=== PATIENT | female | born 1995 | race Caucasian/White ===

== ENCOUNTER 2017-02-05 07:36 | Inpatient (IN) | payer BC ==
[2017-02-05] MEDS ORDERED: BRETHINE 1 MG/ML SQ PRN (17:00)
[2017-02-05] MEDS ORDERED: Cervidil 10 MG VAG SCH (17:30)
[2017-02-05] MEDS ORDERED: Nubain 10 MG/ML IV PRN (18:16)
[2017-02-05] MEDS ORDERED: STADOL 2 MG IV PRN (18:16)
[2017-02-05] MEDS ORDERED: Phenergan 25 MG INJ IV PRN (18:16)
[2017-02-05] MEDS ORDERED: TYLENOL EXTRA STRENGTH 500 MG PO PRN (18:16)
[2017-02-05] MEDS ORDERED: Zofran 4 MG/2 ML VIAL IV PRN (18:16)
[2017-02-05] MEDS ORDERED: XYLOCAINE 1% HCL 20 ML MDV IJ PRN (18:16)
[2017-02-05 18:25] LABS: BASOPHIL % 0.2 % (0.0-0.4); Eosinophil % 1.6 % (0.00-5.0); Granulocytes % 74.6 % (36.0-66.0); Lymphocytes % 17.7 % (24.0-44.0); Mean Cell Volume 89.3 fl (78-100); Mean Corpuscular Hemoglobin 28.8 pg (26-32); Mean Platelet Volume 10.9 fl (6-9.5); Monocytes % 5.9 % (0.0-12.0); Platelet Count 262 K/mm3 (150-450); Red Blood Count 4.02 M/mm3 (4.1-5.4); Red Cell Distribution Width 14.7 % (11.5-14.0); White Blood Count 13.5 K/mm3 (4.0-10.5)
[2017-02-05 20:49] LABS: Bacteria MANY /HPF (NEGATIVE); CALCIUM OXALATE CRYSTALS 0-2 /HPF (NEGATIVE); COMPLETE URINE MICROSCOPIC? YES; Collection Type CLEAN CATCH; Epithelial Cells MANY /HPF (FEW); Mucus MODERATE /HPF (NEGATIVE); WBC 25-50 /HPF (0-5)
[2017-02-06] MEDS: OMNIPEN 2 GM / NACL 100ML 100 ML IV ONE ×2 (04:35→06:15)
[2017-02-06] MEDS: OMNIPEN 1GM / NaCl 100ML 100 ML IV SCH ×5 (04:35→19:27)
[2017-02-06] MEDS ORDERED: PITOCIN 30 UNITS/ LR 500 ML 500 ML IV SCH ×2 (05:00)
[2017-02-06] MEDS ORDERED: OMNIPEN 2 GM / NACL 100ML 100 ML IV ONE (05:00)
[2017-02-06] MEDS ORDERED: Lactated Ringers 1,000 ML IV SCH (05:00)
[2017-02-06] MEDS ORDERED: STADOL 2 MG IV PRN (08:04)
[2017-02-06] MEDS ORDERED: Lactated Ringers 1,000 ML IV ONE (09:00)
[2017-02-06] MEDS ORDERED: OMNIPEN 1GM / NaCl 100ML 100 ML IV SCH (09:00)
[2017-02-06] MEDS ORDERED: OB EPIDURAL NAROPIN/SUFENTANIL IN NACL EPIDURAL PRN (09:00)
[2017-02-06] MEDS ORDERED: Ephedrine Sulfate 50 MG/ML IV PRN (09:00)
[2017-02-06 12:15] VITALS: O2SAT 95
[2017-02-06] MEDS ORDERED: TUCKS TP PRN (13:15)
[2017-02-06] MEDS ORDERED: MOTRIN 400 MG PO PRN (13:15)
[2017-02-06] MEDS ORDERED: Dermoplast Spray TP PRN (13:15)
[2017-02-06] MEDS ORDERED: TYLENOL EXTRA STRENGTH 500 MG PO PRN (13:15)
[2017-02-06] MEDS ORDERED: LANSINOH 40 GM TOP PRN (13:15)
[2017-02-06] MEDS ORDERED: Ambien 10 MG PO PRN (13:15)
[2017-02-06] MEDS ORDERED: Mylicon 80MG PO PRN (13:15)
[2017-02-06] MEDS ORDERED: Adacel Vial IM ONE (13:15)
[2017-02-06] MEDS ORDERED: Anucort-HC SUPPOSITORY PR PRN (13:15)
[2017-02-06] MEDS ORDERED: CORTISONE 1% CREAM TP PRN (13:15)
[2017-02-06] MEDS ORDERED: Tylenol #3 Tablet PO PRN (13:15)
[2017-02-06] MEDS ORDERED: Dulcolax 10 MG SUPP PR PRN (13:15)
[2017-02-06] MEDS: Colace 100 MG PO SCH (21:35)
[2017-02-07 05:23] LABS: BASOPHIL % 0.3 % (0.0-0.4); Eosinophil % 1.7 % (0.00-5.0); Granulocytes % 71.2 % (36.0-66.0); Lymphocytes % 20.8 % (24.0-44.0); Mean Cell Volume 90.4 fl (78-100); Mean Platelet Volume 10.2 fl (6-9.5); Platelet Count 218 K/mm3 (150-450); Red Blood Count 3.65 M/mm3 (4.1-5.4); Red Cell Distribution Width 14.7 % (11.5-14.0); White Blood Count 15.3 K/mm3 (4.0-10.5)
--- NOTE | 2017-02-07 08:10 | PCM.NOTE ---
Date and Time: 02/07/17808 Subjective Assessment: ppd #1 hgb 10.6, mild lochia. minimal pain, tolerating po. no problems or concerns. Objective Exam General Appearance: no apparent distress, alert Respiratory Exam: normal breath sounds, lungs clear, No respiratory distress Cardiovascular Exam: regular rate/rhythm, normal heart sounds Gastrointestinal/Abdomen Exam: soft, No tenderness, No mass Extremity Exam: normal inspection, normal range of motion OBJECTIVE DATA Vital Signs: Vital Signs - 24 hr Temp Pulse Resp BP BP Pulse Ox 02/07/17 02:00 97.7 F 94 H 18 133/79 02/06/17 20:00 98.7 F 99 H 18 127/72 02/06/17 16:00 112 H 18 128/64 02/06/17 15:00 109 H 18 125/57 02/06/17 14:00 103 H 18 125/59 02/06/17 13:45 102 H 18 128/62 02/06/17 13:30 102 H 18 128/62 02/06/17 13:15 100 H 18 128/71 02/06/17 13:00 116 H 18 189/105 02/06/17 12:45 113 H 18 157/96 02/06/17 12:30 90 18 133/73 95 02/06/17 12:15 93 H 18 133/73 95 02/06/17 12:00 99 H 18 129/85 95 02/06/17 11:30 93 H 18 127/67 95 02/06/17 11:15 92 H 18 129/73 95 02/06/17 11:00 67 18 129/67 94 L 02/06/17 10:45 108 H 18 148/69 94 L 02/06/17 10:30 99 H 18 125/68 94 L 02/06/17 10:15 96 H 18 126/58 94 L 02/06/17 10:00 99 H 18 123/65 97 02/06/17 09:45 102 H 18 124/58 02/06/17 09:30 128 H 18 132/81 02/06/17 09:15 100 H 18 139/85 02/06/17 09:00 107 H 18 160/103 02/06/17 08:45 99 H 18 137/85 02/06/17 08:30 98 H 18 134/80 02/06/17 08:15 101 H 18 137/93 Pain Assessment - Last Documented Pain Intensity [Lower] 7 Pain Intensity 8 Pain Scale Used 0-10 Pain Scale Intake and Output: Intake & Output 02/04/17 02/05/17 02/06/17 02/07/17 11:59 11:59 11:59 11:59 Intake Total 400 Output Total 200 Balance 200 Weight 108.862 kg Lab Results: Lab Results-Last 24 Hours 02/07/17 Range/Units 05:17 WBC 15.3 H (4.0-10.5) K/mm3 RBC 3.65 L (4.1-5.4) M/mm3 Hgb 10.6 L (12.0-16.0) gm/dl Hct 33.0 L (35-47) % MCV 90.4 (78-100) fl MCH 29.0 (26-32) pg MCHC 32.1 (32-36) g/dl RDW 14.7 H (11.5-14.0) % Plt Count 218 (150-450) K/mm3 MPV 10.2 H (6-9.5) fl Gran % 71.2 H (36.0-66.0) % Lymphocytes % 20.8 L (24.0-44.0) % Monocytes % 6.0 (0.0-12.0) % Eosinophils % 1.7 (0.00-5.0) % Basophils % 0.3 (0.0-0.4) % Basophils # 0.04 (0-0.4) Assessment/Plan (1) Vaginal delivery Current Visit: No Status: Acute Assessment & Plan: routine pp care Code(s): O80 - ENCOUNTER FOR FULL-TERM UNCOMPLICATED DELIVERY
[2017-02-07] MEDS: FERREX 150 PO SCH (10:51)
[2017-02-07] MEDS: Colace 100 MG PO SCH ×2 (10:51→22:00)
[2017-02-08 09:28] VITALS: BP 105/64; PULSE 75
--- NOTE | 2017-02-08 09:53 | PCM.DS ---
Discharge Summary Date of Admission: 02/06/17 07:55 Admitting Physician: LEONIDES GRANADOS Consults: Consults on Case 02/06/17 09:01 Notify Anesthesia Provider PRN 02/06/17 13:15 Notify Physician ROUTINE Primary Care Provider: LEONIDES GRANADOS Allergies Allergies latex Allergy (Severe, Verified 07/07/16 21:52) causes swelling and rash hydrogen peroxide Allergy (Verified 07/07/16 21:52) patient states it made "white bumps" on her skin Hospital Summary - Hospital Course Hospital Course: doing well s/p at term. mild to mod lochia, tolerating po. denies pain - Vitals & Intake/Output Vital Signs: Vital Signs Temperature 98.7 F 02/08/17 08:00 Pulse Rate 75 02/08/17 08:00 Respiratory Rate 18 02/08/17 08:00 Blood Pressure 105/64 02/08/17 08:00 O2 Sat by Pulse Oximetry 95 02/06/17 12:30 Intake & Output: Intake & Output 02/05/17 02/06/17 02/07/17 02/08/17 11:59 11:59 11:59 11:59 Intake Total 400 650 Output Total 200 Balance 200 650 Weight 108.862 kg - Lab Result Diagrams: 02/07/17 05:17 Micro Results-Entire Visit: Microbiology 02/06/17 10:59 - Final Catherized NO GROWTH Discharge Exam General Appearance: no apparent distress, alert Respiratory Exam: normal breath sounds, lungs clear, No respiratory distress Cardiovascular Exam: regular rate/rhythm, normal heart sounds Gastrointestinal/Abdomen Exam: soft, No tenderness, No mass Extremity Exam: normal inspection, normal range of motion Final Diagnosis/Problem List - Final Discharge Diagnosis/Problem (1) Vaginal delivery Current Visit: No Status: Acute - Discharge Disposition: Home, Self-Care Condition: Stable Prescriptions: Continue Vits W-Ca,Fe,FA(<1Mg) [] 1 tab PO DAILY
[2017-02-08] MEDS: FERREX 150 PO SCH (09:55)
[2017-02-08] MEDS: Colace 100 MG PO SCH (10:04)
== END 2017-02-08 14:20 | disposition home or self-care (01) | DRG 775 ==
LOC: OB 16:51 → OBSVTOIN 02-06 07:55 → MED SURG 02-06 21:37
PROVIDERS: ADMIT Family Medicine; ATTEND Family Medicine
PROC: 10E0XZZ Delivery of Products of Conception, External Approach (ICD-10-PCS; principal; 2017-02-06)
DX: O80 Encounter for full-term uncomplicated delivery (principal); Z3A.40 40 weeks gestation of pregnancy; Z37.0 Single live birth
CPT/HCPCS: 01967; 36415; 80307; 81000; 85025; 87086; 90715; G0378; J0290; J0595; J2590; J2795; A9270-GY

== ENCOUNTER 2022-07-02 10:02 | Emergency (ER) | payer SELFPAY ==
--- NOTE | 2022-07-02 10:06 | ERPHSYRPT ---
- History of Present Illness Time Seen by Provider: 07/02/22 10:05 Source: patient, family Exam Limitations: no limitations Physician History: This is an overweight 26-year-old white female who was at a concert last night and twisted her left ankle at approximately 11 PM. There is persistent pain and increased swelling present and therefore she came in for evaluation. Patient did have some tendon and ligament injury in the distant past on this left ankle. Occurred: yesterday Quality: constant, aching Severity of Pain-Max: mild (To moderate) Severity of Pain-Current: mild (To moderate) Lower Extremities Pain: ankle: left (Lateral aspect) Modifying Factors: Improves With: movement Associated Symptoms: other (Hurts to bear weight but can do so) Allergies/Adverse Reactions: latex Allergy (Severe, Verified 07/02/22 10:18) causes swelling and rash Beef Containing Products Allergy (Verified 07/02/22 10:19) hydrogen peroxide Allergy (Verified 07/02/22 10:18) patient states it made "white bumps" on her skin Hx Tetanus, Diphtheria Vaccination/Date Given: Yes Hx Influenza Vaccination/Date Given: No Hx Pneumococcal Vaccination/Date Given: No Travel Risk - International Travel Have you traveled outside of the country in past 3 weeks: No - Coronavirus Screening Are you exhibiting any of the following symptoms?: No Close contact with a COVID-19 positive Pt in past 14-21 Days: No - Review of Systems Constitutional: No Symptoms Eyes: No Symptoms Ears, Nose, & Throat: No Symptoms Respiratory: No Symptoms Cardiac: No Symptoms Abdominal/Gastrointestinal: No Symptoms Genitourinary Symptoms: No Symptoms Musculoskeletal: Injury Skin: No Symptoms Neurological: No Symptoms Psychological: No Symptoms Endocrine: No Symptoms Hematologic/Lymphatic: No Symptoms Immunological/Allergic: No Symptoms All Other Systems: Reviewed and Negative - Past Medical History Neurological History: No Pertinent History ENT History: No Pertinent History Cardiac History: No Pertinent History Respiratory History: Asthma Endocrine Medical History: No Pertinent History Musculoskeletal History: No Pertinent History GI Medical History: No Pertinent History History: No Pertinent History Psycho-Social History: No Pertinent History Female Reproductive Disorders: No Pertinent History - Past Surgical History Past Surgical History: No - Social History Smoking Status: Never smoker Exposure to second hand smoke: Yes Drug Use: none Patient Lives Alone: No - Nursing Vital Signs Nursing Vital Signs: Initial Vital Signs Temperature 98.2 F 07/02/22 10:11 Pulse Rate 115 H 07/02/22 10:11 Blood Pressure 133/98 07/02/22 10:11 O2 Sat by Pulse Oximetry 97 07/02/22 10:11 Pain Scale Pain Intensity 6 - Physical Exam General Appearance: no apparent distress, alert, anxiety, obese Eyes, Ears, Nose, Throat Exam: normal ENT inspection, moist mucous membranes Neck Exam: normal inspection, non-tender, supple, full range of motion Cardiovascular/Respiratory Exam: chest non-tender, no respiratory distress Gastrointestinal/Abdominal Exam: non-tender Back Exam: normal inspection, normal range of motion, No CVA tenderness, No vertebral tenderness Hips Exam: bilateral: non-tender, normal inspection, normal range of motion, no evidence of injury Legs Exam: bilateral leg: non-tender, normal inspection, normal range of motion, no evidence of injury Knees Exam: bilateral knee: non-tender, normal inspection, normal range of motion, no evidence of injury Ankle Exam: right ankle: non-tender, normal inspection, normal range of motion, no evidence of injury, left ankle: limited range of motion, soft tissue tenderness, swelling Foot Exam: bilateral foot: non-tender, normal inspection, normal range of motion, no evidence of injury Neuro/Tendon Exam: normal sensation, normal motor functions, normal tendon functions, responds to pain, no evidence tendon injury Mental Status Exam: alert, oriented x 3, cooperative Skin Exam: normal color, warm, dry SpO2 Interpretation: normal O2 Delivery: Room Air - Course Nursing assessment & vital signs reviewed: Yes Ordered Tests: Active Orders 24 hr Category Date Time Status Kostas Bandage Application -[facility] STAT Care 07/02/22 11:13 Ordered ANKLE (3 VIEWS) Stat Exams 07/02/22 10:20 Ordered Medication Summary Discontinued Medications Generic Name Dose Route Start Last Admin Trade Name Cornelio PRN Reason Stop Dose Admin Oxycodone/Acetaminophen 1 tab 07/02/22 10:39 07/02/22 10:48 Oxycodone Hcl/Apap 5 Mg/325 Mg Tablet PO 07/02/22 10:40 1 tab STAT STA Administration Oxycodone/Acetaminophen Confirm 07/02/22 10:47 Oxycodone Hcl/Apap 5 Mg/325 Mg Tablet Administered 07/02/22 10:48 Dose 1 tab .ROUTE .STK-MED ONE - Progress Progress: unchanged Progress Note: 07/02/22 11:16 X-ray of left ankle shows no acute fracture or dislocation. There is soft tissue swelling in the area of the lateral malleolus. Patient was offered crutches but declines. - Departure Departure Disposition: Home Clinical Impression: Left ankle sprain Condition: Stable Critical Care Time: No Referrals: LEONIDES GRANADOS MD [Primary Care Provider] - Follow up/PCP as directed Additional Instructions: Elevate the left foot and ankle above the level of your heart when not ambulating. Ambulation as tolerated. Ice pack to area 2-3 times a day for the next 48 hours. Add Aleve or ibuprofen for pain control. Use the Kostas wrap to millwright helper in controlling swelling. Follow-up with your own orthopedic surgeon, Dr. Harrison (podiatry) or [facility] orthopedic clinic as discussed for persistent symptoms. Prescriptions: Oxycodone HCl/Acetaminophen [Percocet 5-325 mg Tablet] 1 each PO Q8H PRN PRN #6 tablet MDD 3 PRN Reason: Moderate To Severe Pain
[2022-07-02 10:18] VITALS: O2SAT 97
[2022-07-02] MEDS ORDERED: PERCOCET TABLET 5/325MG PO STA (10:39)
[2022-07-02] MEDS ORDERED: PERCOCET TABLET 5/325MG ONE (10:47)
[2022-07-02 11:19] VITALS: BP 132/73; PULSE 111
--- NOTE | 2022-07-02 21:33 | XRAY ---
Indication: Pain following fall. Comparison: August 05, 2012 3 view left ankle demonstrates new lateral soft tissue swelling and widened lateral talotibial articulation. Stable small posterior calcaneal bone island. Remaining ankle unremarkable.
== END 2022-07-02 11:30 | disposition home or self-care (01) ==
LOC: ED 10:02
DX: S93.402A Sprain of unspecified ligament of left ankle, initial encounter (principal); X50.0XXA Overexertion from strenuous movement or load, initial encounter; Z79.891 Long term (current) use of opiate analgesic
CPT/HCPCS: 73610; 99283; A9270-GY

== ENCOUNTER 2023-02-20 15:51 | Emergency (ER) | payer OTHER ==
--- NOTE | 2023-02-20 16:00 | ERPHSYRPT ---
- History of Present Illness Time Seen by Provider: 02/20/23 15:59 Historian: patient Exam Limitations: no limitations Physician History: This is a 27-year-old white female patient of Dr. Granados who has a history of asthma and has not had any abdominal surgeries in the past and presents to the emergency department with an achiness in the left upper quadrant that began y esterday. She woke up this morning the pain was more intense and sharp. She has never had anything like this before. She denies chest pain. She denies shortness of breath. She has not had any trauma to this area. Patient drove herself to the emergency department. She states she cannot get a ride home. She has had no nausea vomiting or diarrhea. Timing/Duration: yesterday, worse Quality: aching, sharpness Abdominal Pain Onset Location: [facility] Pain Radiation: no radiation Severity of Pain-Max: moderate Severity of Pain-Current: moderate Modifying Factors: Improves With: other (Her holding pressure to the area lesse ns the pain) Associated Symptoms: denies symptoms Previous symptoms: no prior history Allergies/Adverse Reactions: latex Allergy (Severe, Verified 02/20/23 16:04) causes swelling and rash Beef Containing Products Allergy (Verified 02/20/23 16:04) hydrogen peroxide Allergy (Verified 02/20/23 16:04) patient states it made "white bumps" on her skin melatonin Allergy (Verified 02/20/23 16:04) Swelling of Eyelids Home Medications: Phentermine HCl 1 tab PO DAILY 02/20/23 [History] Hx Tetanus, Diphtheria Vaccination/Date Given: Yes Hx Influenza Vaccination/Date Given: No Hx Pneumococcal Vaccination/Date Given: No Travel Risk - International Travel Have you traveled outside of the country in past 3 weeks: No - Coronavirus Screening Are you exhibiting any of the following symptoms?: No Close contact with a COVID-19 positive Pt in past 14-21 Days: No - Vaccine Status Have you recieved a Covid-19 vaccination: No - Review of Systems Constitutional: No Symptoms Eyes: No Symptoms Ears, Nose, & Throat: No Symptoms Respiratory: No Symptoms Cardiac: No Symptoms Abdominal/Gastrointestinal: Abdominal Pain (Left upper quadrant) Genitourinary Symptoms: No Symptoms Musculoskeletal: No Symptoms Skin: No Symptoms Neurological: No Symptoms Psychological: No Symptoms Endocrine: No Symptoms Hematologic/Lymphatic: No Symptoms Immunological/Allergic: No Symptoms All Other Systems: Reviewed and Negative - Past Medical History Pertinent Past Medical History: No Neurological History: No Pertinent History ENT History: No Pertinent History Cardiac History: No Pertinent History Respiratory History: Asthma Endocrine Medical History: No Pertinent History Musculoskeletal History: No Pertinent History GI Medical History: No Pertinent History History: No Pertinent History Psycho-Social History: No Pertinent History Female Reproductive Disorders: No Pertinent History - Past Surgical History Past Surgical History: No - Social History Smoking Status: Never smoker Exposure to second hand smoke: Yes Drug Use: none Patient Lives Alone: No - Nursing Vital Signs Nursing Vital Signs: Initial Vital Signs Temperature 98.2 F 02/20/23 15:51 Pulse Rate 106 H 02/20/23 15:51 Respiratory Rate 18 02/20/23 15:51 Blood Pressure 151/88 02/20/23 15:51 O2 Sat by Pulse Oximetry 98 02/20/23 15:51 Pain Scale Pain Intensity 2 - Physical Exam General Appearance: no apparent distress, alert, anxiety Eye Exam: PERRL/EOMI, eyes nml inspection Ears, Nose, Throat Exam: normal ENT inspection, moist mucous membranes Neck Exam: normal inspection, non-tender, supple, full range of motion Respiratory Exam: normal breath sounds, lungs clear, airway intact, No chest tenderness, No respiratory distress Cardiovascular Exam: tachycardia Gastrointestinal/Abdomen Exam: soft, normal bowel sounds, tenderness (Upper quadrant), guarding (Left upper quadrant to palpation) Pelvic Exam: not done Rectal Exam: not done Back Exam: normal inspection, normal range of motion, No CVA tenderness, No vertebral tenderness Extremity Exam: normal inspection, normal range of motion, pelvis stable Neurologic Exam: alert, oriented x 3, cooperative, wine and spirits clerk II-XII nml as tested, normal mood/affect, nml cerebellar function, nml station & gait, sensation nml Skin Exam: normal color, warm, dry Lymphatic Exam: No adenopathy SpO2 Interpretation: normal O2 Delivery: Room Air - Course Nursing assessment & vital signs reviewed: Yes Ordered Tests: Active Orders 24 hr Category Date Time Status IV Insertion STAT Care 02/20/23 16:17 Active ABDOMEN AND PELVIS W/0 CONTRAS [CT] Stat Exams 02/20/23 16:18 Taken AMYLASE Stat Lab 02/20/23 16:38 Results CBC W DIFF Stat Lab 02/20/23 16:38 Completed HCG QUALITATIVE, URINE Stat Lab 02/20/23 16:17 Completed LIPASE Stat Lab 02/20/23 16:38 Results Manual Differential NC Stat Lab 02/20/23 16:38 Completed UA W/RFX UR CULTURE Stat Lab 02/20/23 16:17 Completed Medication Summary Discontinued Medications Generic Name Dose Route Start Last Admin Trade Name Cornelio PRN Reason Stop Dose Admin Ketorolac Tromethamine 30 mg 02/20/23 16:41 02/20/23 16:42 Ketorolac Tromethamine 30 Mg/Ml Inj IV 02/20/23 16:42 30 mg STAT ONE Administration Ketorolac Tromethamine Confirm 02/20/23 16:42 Ketorolac Tromethamine 30 Mg/Ml Inj Administered 02/20/23 16:43 Dose 30 mg .ROUTE .Holganix-MED ONE Lab/Rad Data: Laboratory Result Diagrams 02/20/23 16:38 02/20/23 16:38 Laboratory Results 02/20/23 02/20/23 02/20/23 Range/Units 16:38 16:38 16:17 WBC 8.0 (4.0-10.5) x10^3/uL RBC 4.23 (4.1-5.4) x10^6/uL Hgb 12.4 (12.0-16.0) g/dL Hct 38.7 (35-47) % MCV 91.5 (78-100) fL MCH 29.3 (26-32) pg MCHC 32.0 (32-36) g/dL RDW 12.9 (11.5-14.0) % Plt Count 174 (150-450) x10^3/uL MPV 8.6 (7.5-11.0) fL Sodium Direct 138 (138-146) mmol/L Potassium 4.1 (3.5-4.9) mmol/L Chloride 100 (98-109) mmol/L Carbon Dioxide 26 (24-29) mmol/L Venous BUN 12 (8-26) mg/dL Creatinine 0.8 (0.6-1.3) mg/dL Glucose 102 (70-105) mg/dL Ionized Calcium 1.26 (1.12-1.32) mmol/L Amylase Pending Lipase Pending Urine Color (Yellow) Urine Appearance (Clear) Urine pH (4.6-8.0) Ur Specific Pride (1.005-1.030) Urine Protein (Negative) Urine Glucose (UA) (Negative) mg/dL Urine Ketones (Negative) Urine Blood (Negative) Urine Nitrite (Negative) Urine Bilirubin (Negative) Urine Urobilinogen (0.2) mg/dL Ur Leukocyte Esterase (Negative) U Hyaline Cast (Auto) (0-2) /LPF Urine Microscopic RBC (0-5) /HPF Urine Microscopic WBC (0-5) /HPF Ur Epithelial Cells (None Seen) /HPF Urine Bacteria (None Seen) /HPF Urine Culture Reflexed (NO) Urine HCG, Qual NEGATIVE (NEGATIVE) 02/20/23 Range/Units 16:17 WBC (4.0-10.5) x10^3/uL RBC (4.1-5.4) x10^6/uL Hgb (12.0-16.0) g/dL Hct (35-47) % MCV (78-100) fL MCH (26-32) pg MCHC (32-36) g/dL RDW (11.5-14.0) % Plt Count (150-450) x10^3/uL MPV (7.5-11.0) fL Sodium Direct (138-146) mmol/L Potassium (3.5-4.9) mmol/L Chloride (98-109) mmol/L Carbon Dioxide (24-29) mmol/L Venous BUN (8-26) mg/dL Creatinine (0.6-1.3) mg/dL Glucose (70-105) mg/dL Ionized Calcium (1.12-1.32) mmol/L Amylase Lipase Urine Color Yellow (Yellow) Urine Appearance Clear (Clear) Urine pH 6.0 (4.6-8.0) Ur Specific Pride 1.025 (1.005-1.030) Urine Protein Trace A (Negative) Urine Glucose (UA) Negative (Negative) mg/dL Urine Ketones Trace A (Negative) Urine Blood Negative (Negative) Urine Nitrite Negative (Negative) Urine Bilirubin Negative (Negative) Urine Urobilinogen 4.0 A (0.2) mg/dL Ur Leukocyte Esterase Trace A (Negative) U Hyaline Cast (Auto) NONE SEEN (0-2) /LPF Urine Microscopic RBC 0-2 (0-5) /HPF Urine Microscopic WBC 3-5 (0-5) /HPF Ur Epithelial Cells Rare (None Seen) /HPF Urine Bacteria Rare A (None Seen) /HPF Urine Culture Reflexed NO (NO) Urine HCG, Qual (NEGATIVE) - Progress Progress: improved, pain not gone completely, re-examined Progress Note: 02/20/23 18:54 CAT scan of the abdomen pelvis without contrast shows no acute intra-abdominal or intrapelvic findings. The appendix is visualized and it is normal. This patient's medical issue is 1 of moderate complexity. The level of complexity and the work-up performed is based on past medical history, review of the patient's drug allergies, review of the patient's medication list, history present illness and findings on physical examination. Work-up performed is placement of intravenous line, urinalysis, CBC, CMP, amylase and lipase. In addition we performed a CAT scan of the abdomen pelvis without contrast with the above findings. Reexamination, after 30 mg intravenous Toradol shows the patient to be more comfortable. She is in no distress. She does not appear to be anxious. Patient be discharged home with instructions to use ibuprofen for pain and we will add a muscle relaxant. Counseled pt/family regarding: lab results, diagnosis, need for follow-up, rad results Medical Desision Making - Discussion of managment Agreed on:: Treatment plan, need for follow-up - Diagnostic Testing Diagnostic test were ordered, analyzed, and reviewed by me: Yes Radiological Interpretation: Reviewed by me, Teleradiologist Report - Risk of complications The pt has a mod risk of morbidity or mortality based on: Need for prescription drug management - Departure Departure Disposition: Home Clinical Impression: Left upper quadrant abdominal pain, Pain on movement of skeletal muscle Condition: Stable Critical Care Time: No Referrals: LEONIDES GRANADOS MD [Primary Care Provider] - Follow up/PCP as directed Additional Instructions: Ibuprofen 600 mg orally with food 3 times a day for the next 5 days. Take your other medication as prescribed. Follow-up with your primary care provider for further evaluation management. Prescriptions: Orphenadrine Citrate 100 mg [Norflex 100 MG Tablet] 100 mg PO BID #10 tab
[2023-02-20 16:40] LABS: Hematocrit 38.7 % (35-47); Hemoglobin 12.4 g/dL (12.0-16.0); Mean Cell Volume 91.5 fL (78-100); Mean Corpuscular Hemoglobin 29.3 pg (26-32); Mean Platelet Volume 8.6 fL (7.5-11.0); Platelet Count 174 x10^3/uL (150-450); Red Blood Count 4.23 x10^6/uL (4.1-5.4); Red Cell Distribution Width 12.9 % (11.5-14.0)
[2023-02-20] MEDS ORDERED: TORAdol 30 mg Injection IV ONE (16:41)
[2023-02-20 16:42] LABS: HCG URINE TEST NEGATIVE (NEGATIVE)
[2023-02-20] MEDS ORDERED: TORAdol 30 mg Injection ONE (16:42)
[2023-02-20 16:43] LABS: Appearance Clear (Clear); Bacteria Rare /HPF (None Seen); Bilirubin Negative (Negative); Blood Negative (Negative); Epithelial Cells Rare /HPF (None Seen); Glucose, Urine Negative (Negative); Hyaline Casts NONE SEEN /LPF (0-2); Ketones Trace (Negative); Leukocyte Esterase Trace (Negative); Nitrite Negative (Negative); Protein,Urine Dip Trace (Negative); RBC 0-2 /HPF (0-5); Specific Gravity 1.025 (1.005-1.030)
[2023-02-20 16:46] LABS: ADD URINE CULTURE? NO (NO)
[2023-02-20 16:52] LABS: ISTAT CREA 0.8 mg/dL (0.6-1.3); ISTAT K 4.1 mmol/L (3.5-4.9); ISTAT iCA 1.26 mmol/L (1.12-1.32)
[2023-02-20 18:59] VITALS: BP 138/90; PULSE 100; O2SAT 98
[2023-02-21 00:36] LABS: Eosinophil 1 % (0.00-3.0); Lymphocytes 53 % (24-44); Monocyte 9 % (0.0-12.0); Neutrophils 37 % (36.0-66.0); Platelet Estimate NORMAL (NORMAL); Total Cells Counted 100
--- NOTE | 2023-02-21 08:35 | XRAY ---
Indication: Left abdomen pain and short of breath. No known injury. Multiple contiguous axial images obtained through the abdomen and pelvis without contrast. Comparison: None Lung bases demonstrates a few right base calcified granulomas. No infiltrate or effusion. Heart not enlarged. Stomach distended with food/fluid. Gallbladder contracted without gallstones. Noncontrasted stomach and bowel loops appear nonobstructed with normal appendix. There is mild diffuse scattered colonic fecal debris throughout including rectum. No free fluid/air. Uterus demonstrates IUD in situ. Incidental 14 cm splenomegaly. Remaining liver, gallbladder, pancreas, spleen, adrenal glands, kidneys, ureters, bladder, uterus, and aorta are unremarkable for noncontrast exam. Osseous structures intact. No ventral or inguinal hernias. Impression: 1. Mild diffuse fecal stasis, splenomegaly, IUD in situ, and old granulomatous disease. 2. Remaining CT abdomen/pelvis without contrast exam is negative.
== END 2023-02-20 19:03 | disposition home or self-care (01) ==
LOC: ED 15:51
DX: R10.12 Left upper quadrant pain (principal); M79.18 Myalgia, other site; Z79.899 Other long term (current) drug therapy; Z28.310 Unvaccinated for COVID-19
CPT/HCPCS: 36000; 36415; 74176; 80047; 81001; 81025; 82150; 83690; 85025; 96374; 99284; J1885

== ENCOUNTER 2024-08-07 04:42 | Inpatient (IN) | payer OTHER ==
[2024-08-07] MEDS ORDERED: STADOL 2 MG IV PRN (05:00)
[2024-08-07] MEDS ORDERED: Zofran 4 MG/2 ML VIAL IV PRN (05:00)
[2024-08-07] MEDS ORDERED: TYLENOL EXTRA STRENGTH 500 MG PO PRN ×2 (05:00→16:42)
[2024-08-07] MEDS ORDERED: Nubain 10 MG/ML IV PRN (05:00)
[2024-08-07 05:21] LABS: Absolute Neutrophil Ct (ANC) 9.71 x10^3/uL (1.56-6.13); BASOPHIL % 0.2 % (0.1-1.2); Basophil (Absolute #) 0.03 x10^3/uL (0.01-0.08); Eosinophil % 1.2 % (0.7-5.8); Eosinophil (Absolute #) 0.15 x10^3/uL (0.04-0.36); Hematocrit 33.6 % (34.1-44.9); Hemoglobin 11.2 g/dL (11.2-15.7); IMMATURE GRAN # 0.05 x10^3u/L (0.001-0.031); IMMATURE GRAN % 0.4 % (0.001-0.429); Lymphocyte (Absolute #) 2.41 x10^3/uL (1.18-3.74); Lymphocytes % 18.7 % (19.3-51.7); Mean Cell Volume 90.1 fL (79.4-94.8); Mean Corpuscular Hgb Concent. 33.3 g/dL (32.2-35.5); Mean Platelet Volume 9.7 fL (9.4-12.3); Monocyte (Absolute #) 0.57 x10^3/uL (0.24-0.86); Monocytes % 4.4 % (4.7-12.5); Neutrophil % 75.1 % (34.0-71.1); Platelet Count 250 x10^3/uL (182-369); Red Blood Count 3.73 x10^6/uL (3.93-5.22); Red Cell Distribution Width 14.2 % (11.7-14.4); White Blood Count 12.9 x10^3/uL (3.98-10.04)
[2024-08-07 05:44] LABS: Amphetamine,Urine NEGATIVE (NEGATIVE); Barbiturate,Urine NEGATIVE (NEGATIVE); Benzodiazepine,Urine NEGATIVE (NEGATIVE); Cocaine,Urine NEGATIVE (NEGATIVE); Methadone,Urine NEGATIVE (NEGATIVE); Opiate,Urine NEGATIVE (NEGATIVE); PCP,Urine NEGATIVE (NEGATIVE); THC,Urine NEGATIVE (NEGATIVE)
[2024-08-07] MEDS: Lactated Ringers 1,000 ML IV SCH (05:50)
[2024-08-07] MEDS: OMNIPEN 2 GM*** 2 G in Sodium Chloride 100ML MINI-BAG PLUS 100 ML IV ONE (05:51)
[2024-08-07 05:57] LABS: ABO TYPING B; Antibody Screen NEGATIVE (NEGATIVE); RH TYPING POSITIVE
[2024-08-07] MEDS ORDERED: PITOCIN 30 UNITS/ LR 500 ML 30 UNITS/500 ML PLAST..BAG IV SCH ×2 (06:00→15:00)
[2024-08-07] MEDS ORDERED: BRETHINE 1 MG/ML SQ PRN (06:00)
[2024-08-07] MEDS ORDERED: Lactated Ringers 1,000 ML IV SCH (06:00)
[2024-08-07] MEDS ORDERED: Ephedrine Sulfate 50 MG/ML IV PRN (09:00)
[2024-08-07] MEDS: Lactated Ringers 1,000 ML IV ONE (09:40)
[2024-08-07] MEDS ORDERED: FENTANYL 2 MCG-BUPIV 0.125%-NS 250 ML Epidur 250 ML EPIDURAL ONE (09:45)
[2024-08-07] MEDS: FENTANYL 2 MCG-BUPIV 0.125%-NS 250 ML Epidur 250 ML EPIDURAL SCH (10:30)
[2024-08-07] MEDS: OMNIPEN 1 GM*** 1 GM in Sodium Chloride 100ML MINI-BAG PLUS 100 ML IV SCH (10:32)
[2024-08-07] MEDS ORDERED: XYLOCAINE 1% HCL 20 ML MDV IJ PRN (15:00)
[2024-08-07] MEDS ORDERED: Anucort-HC SUPPOSITORY PR PRN (16:42)
[2024-08-07] MEDS ORDERED: CORTISONE 1% CREAM TP PRN (16:42)
[2024-08-07] MEDS ORDERED: Mylicon 80MG PO PRN (16:42)
[2024-08-07] MEDS ORDERED: Ambien 10 MG PO PRN (16:42)
[2024-08-07] MEDS ORDERED: Dulcolax 10 MG SUPP PR PRN (16:42)
[2024-08-07] MEDS ORDERED: NORCO 5/325 MG PO PRN (16:42)
[2024-08-07] MEDS: LANSINOH 40 GM TOP PRN (19:52)
[2024-08-07] MEDS: TUCKS TP PRN (19:52)
[2024-08-07] MEDS: Dermoplast Spray TP PRN (19:53)
[2024-08-08] MEDS: MOTRIN 400 MG PO PRN (01:36)
[2024-08-08] MEDS: Docusate Sodium 100 MG PO SCH (01:39)
[2024-08-08 05:34] LABS: Absolute Neutrophil Ct (ANC) 9.81 x10^3/uL (1.56-6.13); BASOPHIL % 0.3 % (0.1-1.2); Basophil (Absolute #) 0.04 x10^3/uL (0.01-0.08); Eosinophil % 1.2 % (0.7-5.8); Eosinophil (Absolute #) 0.15 x10^3/uL (0.04-0.36); Hematocrit 30.7 % (34.1-44.9); IMMATURE GRAN # 0.06 x10^3u/L (0.001-0.031); IMMATURE GRAN % 0.5 % (0.001-0.429); Lymphocyte (Absolute #) 2.22 x10^3/uL (1.18-3.74); Lymphocytes % 17.3 % (19.3-51.7); Mean Cell Volume 91.9 fL (79.4-94.8); Mean Corpuscular Hemoglobin 29.9 pg (25.6-32.2); Mean Corpuscular Hgb Concent. 32.6 g/dL (32.2-35.5); Mean Platelet Volume 10.6 fL (9.4-12.3); Monocyte (Absolute #) 0.57 x10^3/uL (0.24-0.86); Monocytes % 4.4 % (4.7-12.5); Neutrophil % 76.3 % (34.0-71.1); Platelet Count 260 x10^3/uL (182-369); Red Blood Count 3.34 x10^6/uL (3.93-5.22); Red Cell Distribution Width 14.5 % (11.7-14.4); White Blood Count 12.9 x10^3/uL (3.98-10.04)
[2024-08-08 07:11] LABS: RPR Non Reactive (Non Reactive)
[2024-08-08] MEDS: FERREX 150 PO SCH (09:13)
[2024-08-08] MEDS: Adacel Vial IM ONE (17:40)
[2024-08-08 21:04] VITALS: O2SAT 97
[2024-08-09 07:40] VITALS: BP 119/74; PULSE 94; RESP 18; TEMP 98.5
--- NOTE | 2024-08-09 08:52 | PCM.DS ---
Discharge Summary Date of Admission: 08/07/24 08:44 Admitting Physician: LEONIDES GRANADOS Primary Care Provider: LEONIDES GRANADOS Allergies Allergies latex Allergy (Severe, Verified 02/20/23 16:04) causes swelling and rash Beef Containing Products Allergy (Verified 02/20/23 16:04) hydrogen peroxide Allergy (Verified 02/20/23 16:04) patient states it made "white bumps" on her skin melatonin Allergy (Verified 02/20/23 16:04) Swelling of Eyelids Hospital Summary - Hospital Course Hospital Course: patient had uncomplicated vaginal delivery, well. mild lochia, no pain - Vitals & Intake/Output Vital Signs: Vital Signs Temperature 98.5 F 08/09/24 07:39 Pulse Rate 94 H 08/09/24 07:39 Respiratory Rate 18 08/09/24 07:39 Blood Pressure 119/74 08/09/24 07:39 O2 Sat by Pulse Oximetry 97 08/08/24 20:00 Intake & Output: Intake & Output 08/06/24 08/07/24 08/08/24 08/09/24 11:59 11:59 11:59 11:59 Intake Total 1225 Output Total 750 Balance -750 1225 Weight 123.831 kg - Lab Result Diagrams: 08/08/24 04:20 Micro Results-Entire Visit: Microbiology 08/07/24 11:00 Urine Culture - Final Catherized NO GROWTH Discharge Exam General Appearance: no apparent distress Neurologic Exam: alert, oriented x 3 Respiratory Exam: normal breath sounds, lungs clear, No respiratory distress Cardiovascular Exam: regular rate/rhythm Gastrointestinal/Abdomen Exam: soft, No tenderness, No mass Extremity Exam: normal inspection, normal range of motion Skin Exam: normal color, warm, dry Final Diagnosis/Problem List - Final Discharge Diagnosis/Problem (1) Vaginal delivery Current Visit: No Status: Acute Code(s): O80 - ENCOUNTER FOR FULL-TERM UNCOMPLICATED DELIVERY - Discharge Disposition: Home, Self-Care Condition: Stable Prescriptions: New Pnv,Calcium 72/Iron/Folic Acid [M- Plus Tablet] 1 each PO DAILY #30 tablet Discontinued Pnv No.95/Ferrous Fum/Folic AC [ Caplet] 1 tab PO DAILY Aspirin [Ecotrin] 325 mg PO DAILY Ferrous Sulfate [Iron] 1 tab PO DAILY Follow up with: LEONIDES GRANADOS MD [Primary Care Provider] - 6 weeks
== END 2024-08-09 10:10 | disposition home or self-care (01) | DRG 807 ==
LOC: OB 04:42 → UNDOADMOB 04:42 → OBSVTOIN 08:44 → OB 08:44
PROVIDERS: ADMIT Family Medicine; ATTEND Family Medicine
PROC: 10E0XZZ Delivery of Products of Conception, External Approach (ICD-10-PCS; principal; 2024-08-07)
DX: O80 Encounter for full-term uncomplicated delivery (principal); Z37.0 Single live birth; Z3A.39 39 weeks gestation of pregnancy
CPT/HCPCS: 36415; 80307; 85025; 86592; 86850; 86900; 86901; 87086; 90715; 96372; J0290; A9270-GY